=== PATIENT | female | born 1935 | race Caucasian/White ===

== ENCOUNTER 2020-03-22 12:54 | Inpatient (IN) ==
[~2020-03-22 12:54] MED LIST: PHENERGAN IV PRN; SODIUM CHLORIDE 0.9% INJ PRN; TYLENOL PO PRN
[2020-03-22] MEDS: LEVAQUIN 500 MG/D5W 500 MG/100 ML IVPB IV SCH (14:56)
[2020-03-22] MEDS: NS 1,000 ML IV SCH (14:57)
[2020-03-22] MEDS: LOVENOX SUBQ SCH (14:57)
[2020-03-22 19:04] LABS: URINE SOURCE CLEAN CATCH
[2020-03-22 19:42] LABS: BILIRUBIN URINE NEGATIVE (NEGATIVE); COLOR YELLOW; GLUCOSE URINE NEGATIVE (NEGATIVE); KETONE URINE 10 mg/dL (NEGATIVE); TURBIDITY URINE CLEAR (CLEAR)
[2020-03-22 19:43] LABS: BLOOD URINE NEGATIVE (NEGATIVE); LEUKOCYTES URINE NEGATIVE (NEGATIVE); NITRITE URINE NEGATIVE (NEGATIVE); PROTEIN URINE TRACE mg/dL (NEGATIVE); SP GRAVITY URINE >= 1.030; UROBILINOGEN URINE NORMAL (NORMAL)
[2020-03-22 19:45] LABS: UR EPITHELIAL CELLS >10 /HPF (<10); URINE BACTERIA NEGATIVE /HPF; URINE RBC <10 /HPF (<10); URINE WBC <10 /HPF (<10)
[2020-03-23] MEDS: NS 1,000 ML IV SCH ×2 (03:06→13:36)
[2020-03-23] MEDS: PRILOSEC PO SCH (06:22)
[2020-03-23] MEDS: SYNTHROID PO SCH (06:22)
[2020-03-23] MEDS ORDERED: BENICAR PO SCH (09:00)
[2020-03-23 09:30] LABS: AGAP 10; BUN 15 mg/dL (8-22); CALCIUM 8.2 mg/dL (8.8-10.2); CHLORIDE 92 mmol/L (98-107); COSMO 248; CREATININE 0.8 mg/dL (0.5-0.9); ESTIMATED GFR > 60; GLUCOSE 113 mg/dL (70-104); POTASSIUM 4.2 mmol/L (3.5-5.1); SODIUM 122 mmol/L (136-145); TCO2 20 mmol/L (25-35)
[2020-03-23] MEDS ORDERED: SAMSCA PO ONE (09:38)
--- NOTE | 2020-03-23 10:28 | PROGRESS NOTE ---
DATE: 03/23/2020 SUBJECTIVE: Ms. Olmos is awake and easily arousable this morning. She is sitting up in the hospital bed. She is oriented to name, place, and time. She asks me if she could go home. She seems to feel better and stronger this morning after fluid resuscitation with normal saline. She has had no further nausea or vomiting and reports that her appetite has improved. Unfortunately, her serum sodium has not improved with fluid resuscitation. She appears to be euvolemic. Blood pressure is stable. Her serum osmolality was 258. Her urine osmolality was 848. Her urine sodium was 70. OBJECTIVE: Vital Signs: Temperature 98.2, pulse 76, respirations 19, blood pressure 109/57. Cardiovascular: Regular rate and rhythm. Lungs: Clear. Abdomen: Soft and nontender with active bowel sounds. ASSESSMENT AND PLAN: 1. Urinary tract infection. I will continue Levaquin pending a urine culture and sensitivity. 2. Hyponatremia. She appears to be euvolemic. Her serum osmolality is low. Urine sodium is high. 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 I will treat her with Samsca 30 mg by mouth for 1 dose and recheck a basic metabolic panel in 4 hours. We will continue normal saline. 3. Hypertension. Blood pressure is stable. We will continue olmesartan. cc: Alejo Coker MD
[2020-03-23] MEDS: LOVENOX SUBQ SCH (13:36)
[2020-03-23] MEDS: LEVAQUIN 500 MG/D5W 500 MG/100 ML IVPB IV SCH (13:36)
[2020-03-23 13:59] LABS: CALCIUM 8.7 mg/dL (8.8-10.2); CREATININE 0.9 mg/dL (0.5-0.9); POTASSIUM 4.3 mmol/L (3.5-5.1)
[2020-03-24] MEDS: NS 1,000 ML IV SCH ×2 (03:22→03:43)
[2020-03-24] MEDS: PRILOSEC PO SCH (06:14)
[2020-03-24] MEDS: SYNTHROID PO SCH (06:14)
[2020-03-24 07:18] LABS: CALCIUM 8.8 mg/dL (8.8-10.2); CREATININE 0.9 mg/dL (0.5-0.9); POTASSIUM 4.4 mmol/L (3.5-5.1)
[2020-03-24] MEDS ORDERED: NS 250 ML IV ONE (08:54)
[2020-03-24] MEDS ORDERED: BENICAR PO SCH (09:00)
[2020-03-24 12:12] VITALS: BP 112/63
--- NOTE | 2020-03-27 14:34 | DISCHARGE SUMMARY ---
ADMISSION DATE: 03/22/2020 DISCHARGE DATE: 03/24/2020 DISCHARGE DIAGNOSES: 1. Hyponatremia. 2. Volume depletion secondary to intractable nausea and vomiting. 3. Dehydration secondary to intractable nausea and vomiting. 4. Essential hypertension. 5. Gastroesophageal reflux disease. 6. Primary hypothyroidism. DISCHARGE INSTRUCTIONS: 1. Return to clinic in 1 week to see me, Dr. Maurice Coker. 2. Activity as tolerated. 3. Healthy heart diet. 4. Medications: Levothyroxine 50 mcg daily, Benicar 20 mg daily, omeprazole 20 mg daily. DISCHARGE PHYSICAL EXAMINATION: This is an elderly, frail, 84-year-old, lady in no apparent distress. She is afebrile. Vital signs are stable. CV: Regular rate and rhythm. Lungs: Clear. Abdomen: Soft, nontender, with active bowel sounds. No hepatosplenomegaly. No abdominal bruits. HOSPITAL COURSE: Ms. Olmos presented to the office with complaint of intractable nausea, vomiting, and dizziness. She was orthostatic in the office. I admitted her initially as an outpatient to [facility] and aggressively rehydrated her with normal saline. We reduced the dosage of the Benicar to 20 mg daily. Blood pressure normalized with fluid resuscitation and reducing blood pressure medications. She was noted to have a serum sodium of 122. Her serum sodium did not improve with fluid resuscitation. I checked the urine osmolality which was 258. Her serum osmolality was 258. She had a high urine osmolality and a high urine sodium of 70. By that time, she appeared to be euvolemic and I was concerned about the possibility of SIADH. We gave her a 1 time dose of Samsca and her serum sodium improved to 132. Her nausea and vomiting resolved. Her diet was advanced as tolerated. She was tolerating a bland diet without nausea, vomiting, or abdominal pain at the time of discharge. Having reached maximum hospital benefit, the patient was discharged in stable condition. cc: Alejo Coker MD
== END 2020-03-24 13:39 | disposition home or self-care (01) | DRG 641 ==
LOC: DIRADM → 3N 12:54
PROVIDERS: ADMIT Internal Medicine; ATTEND Internal Medicine